=== PATIENT | female | born 1975 | race Hispanic/Latino ===

== ENCOUNTER 2019-06-23 15:45 | Emergency (ER) | payer MEDICAID ==
[2019-06-23 16:21] LABS: APPEARANCE,URINE Clear (CLEAR); BILIRUBIN,URINE Negative (NEGATIVE); COLOR,URINE Yellow (YELLOW); GLUCOSE, URINE (UA) Negative (NEGATIVE); KETONES,URINE 40 mg/dL (NEGATIVE); LEUKOCYTE ESTERASE ,URINE Negative (NEGATIVE); NITRATE,URINE Negative (NEGATIVE); OCCULT BLOOD,URINE Moderate (NEGATIVE); PH,URINE 5.5 (5.0-8.0); PROTEIN,URINE Trace mg/dL (NEGATIVE)
[2019-06-23 16:24] LABS: HCG,QUAL RESULT NEGATIVE (NEGATIVE)
[2019-06-23 16:27] LABS: BACTERIA,URINE Few /HPF (None Seen); WBC,URINE 0-1 /HPF (0-1)
[2019-06-23 16:28] LABS: SQUAMOUS EPITHELIAL CELL,UR Few /HPF (0-2)
[2019-06-23] MEDS ORDERED: CEFTRIAXONE SODIUM 1 GM ONE (16:51)
[2019-06-23] MEDS ORDERED: DEXAMETHASONE SOD PHOSPHATE 10MG/ML 1ML VIAL ONE (16:51)
[2019-06-23] MEDS ORDERED: KETOROLAC TROMETHAMINE 30MG/ML ONE (16:51)
[2019-06-23 16:52] LABS: BASOPHILS % (AUTO) 0.5 % (0.0-5.0); HEMATOCRIT 40.4 % (36-48); LYMPHOCYTES % (AUTO) 4.9 % (21.0-51.0); MEAN CORPUSCULAR HEMOGLOBIN 27.1 pg (27.0-33.0); MEAN CORPUSCULAR HGB CONC 33.6 g/dL (32.0-36.0); MEAN CORPUSCULAR VOLUME 80.6 fL (79-99); MONOCYTES % (AUTO) 4.2 % (3.0-13.0); NEUTROPHILS % (AUTO) 90.4 % (40.0-77.0); NUCLEATED RED BLOOD CELLS 0.1 % (0.0-0.19); PLATELET COUNT (AUTO) 356 K/uL (130-400); RED BLOOD CELL COUNT(AUTO) 5.01 MIL/uL (4.00-5.50); WHITE BLOOD COUNT (AUTO) 15.8 K/uL (4.8-10.8)
[2019-06-23] MEDS ORDERED: ACETAMINOPHEN 325 MG TAB ONE (16:52)
[2019-06-23 17:07] LABS: CREATININE 0.6 mg/dL (0.5-1.5); POTASSIUM 3.4 mmol/L (3.5-5.1)
== END 2019-06-23 17:44 | disposition home or self-care (01) ==
LOC: EDH 15:45
DX: J03.90 Acute tonsillitis, unspecified (principal); R50.81 Fever presenting with conditions classified elsewhere
CPT/HCPCS: 36415; 80048; 81001; 81025; 85025; 87880; 96374; 96375; 99284; J0696; J1100; J1885

== ENCOUNTER 2020-07-11 02:41 | Emergency (ER) | payer MEDICAID ==
[2020-07-11] MEDS ORDERED: MORPHINE SULFATE 4 MG/1ML SYG ONE (02:52)
[2020-07-11] MEDS ORDERED: KETOROLAC TROMETHAMINE 60 MG/2 ML VIAL ONE (03:26)
== END 2020-07-11 04:53 | disposition home or self-care (01) ==
LOC: EDH 02:41
DX: K02.9 Dental caries, unspecified (principal); K08.89 Other specified disorders of teeth and supporting structures; R03.0 Elevated blood-pressure reading, without diagnosis of hypertension; Z98.51 Tubal ligation status
CPT/HCPCS: 96372 ×2; 99285; J1885; J2270